=== PATIENT | male | born 1995 | race Caucasian/White ===

== ENCOUNTER 2017-01-09 07:19 | Emergency (ER) | payer BC ==
[~2017-01-09] VITALS: Ht 177.8 cm; Wt 74.0 kg
[2017-01-09] MEDS ORDERED: SODIUM CHLORIDE 0.9% 1,000ML IVBOLUS ONE (08:00)
[2017-01-09] MEDS ORDERED: ONDANSETRON 2MG/ML, 2ML IVPush ONE (08:00)
[2017-01-09] MEDS ORDERED: SODIUM CHLORIDE FLUSH 10ML SYR IVF ONE (08:00)
[2017-01-09] MEDS ORDERED: MORPHINE SULFATE 4 MG/ML, 1ML IVPush PRN (08:00)
[2017-01-09] MEDS ORDERED: ONDANSETRON 2MG/ML, 2ML ONE (08:11)
[2017-01-09] MEDS ORDERED: MORPHINE SULFATE 4 MG/ML, 1ML ONE (08:11)
[2017-01-09 08:27] LABS: BLOOD UREA NITROGEN 14 mg/dL (7-18)
[2017-01-09 09:22] LABS: DAU SCREEN DISCLAIMER
[2017-01-09 10:22] VITALS: BP 114/69
== END 2017-01-09 10:24 | disposition home or self-care (01) ==
LOC: ED 08:26
DX: S06.0X0A Concussion without loss of consciousness, initial encounter (principal); S16.1XXA Strain of muscle, fascia and tendon at neck level, initial encounter; S39.012A Strain of muscle, fascia and tendon of lower back, initial encounter; S00.31XA Abrasion of nose, initial encounter; S00.81XA Abrasion of other part of head, initial encounter; F15.129 Other stimulant abuse with intoxication, unspecified; F13.129 Sedative, hypnotic or anxiolytic abuse with intoxication, unspecified; V49.9XXA Car occupant (driver) (passenger) injured in unspecified traffic accident, initial encounter; Y93.89 Activity, other specified; Y92.410 Unspecified street and highway as the place of occurrence of the external cause; Y99.9 Unspecified external cause status
CPT/HCPCS: 36415; 70450; 70486; 72110; 72125; 80048; 80307; 81003; 82040; 85025; 96361; 96374; 96375; 99285; J2405; J7030

== ENCOUNTER 2017-06-08 20:40 | Emergency (ER) | payer BC ==
[~2017-06-08] VITALS: Ht 177.8 cm; Wt 83.5 kg
[2017-06-08 20:42] VITALS: BP 122/87
[2017-06-08] MEDS ORDERED: PROPARACAINE OPHTH 0.5%, 15ML LEFTEYE ONE (21:00)
[2017-06-08] MEDS ORDERED: FLUORESCEIN OPHTHALMIC 1 MG STRIP LEFTEYE ONE (21:00)
[2017-06-08] MEDS ORDERED: FLUORESCEIN OPHTHALMIC 1 MG STRIP ONE ×2 (21:10→21:43)
[2017-06-08] MEDS ORDERED: PROPARACAINE OPHTH 0.5%, 15ML ONE ×2 (21:10→21:43)
== END 2017-06-08 23:20 | disposition home or self-care (01) ==
LOC: ED 23:02
DX: H10.022 Other mucopurulent conjunctivitis, left eye (principal)
CPT/HCPCS: 99283